=== PATIENT | female | born 1995 | race African-American/Black ===

== ENCOUNTER 2019-03-17 18:19 | Emergency (ER) | payer OTHER ==
[~2019-03-17] VITALS: Ht 160 cm; Wt 56.7 kg
[2019-03-17] MEDS ORDERED: ISOVUE-370 76% 100ML VIAL (Q9967) As Ordered ONE (20:34)
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
[2019-03-17 22:10] VITALS: BP 135/76
--- NOTE | 2019-03-18 10:51 | REP ---
Left tibia-fibula four views : There is no fracture or dislocation. Mineralization and joint spaces are normal. There are no calcifications or foreign bodies. Impression: Negative left tibia-fibula . Electronically Signed by Arcadio Kim MD 03/18/2019 08:22 A
--- NOTE | 2019-03-18 10:51 | REP ---
Right shoulder three views : There is no fracture or dislocation. Mineralization and joint spaces are normal. There are no calcifications or foreign bodies. Impression: Negative right shoulder . Electronically Signed by Arcadio Kim MD 03/18/2019 08:23 A
--- NOTE | 2019-03-18 10:51 | REP ---
Left hand four views : There is no fracture or dislocation. Mineralization and joint spaces are normal. There are no calcifications or foreign bodies. Impression: Negative left hand . Electronically Signed by Arcadio Kim MD 03/18/2019 08:21 A
== END 2019-03-17 22:11 | disposition home or self-care (01) ==
LOC: M ED 18:19
DX: T74.11XA Adult physical abuse, confirmed, initial encounter (principal); S10.91XA Abrasion of unspecified part of neck, initial encounter; R52 Pain, unspecified; Y04.8XXA Assault by other bodily force, initial encounter; Y92.098 Other place in other non-institutional residence as the place of occurrence of the external cause
CPT/HCPCS: 36415; 70450; 70491; 71260; 73030; 73130; 73590; 74177; 80047; 84702; 99284; Q9967

== ENCOUNTER 2019-06-21 11:56 | Emergency (ER) | payer OTHER ==
[~2019-06-21] VITALS: Ht 154.9 cm; Wt 56.8 kg
[2019-06-21 13:40] LABS: BILIRUBIN, URINE MANUAL NEGATIVE (NEGATIVE); GLUCOSE, URINE (UA) MANUAL 1+(100 MG/DL) mg/dL (NEGATIVE); KETONE, URINE MANUAL NEGATIVE (NEGATIVE); UROBILINOGEN, URINE MANUAL NORMAL (NORMAL)
[2019-06-21] MEDS ORDERED: CLEO300C2 PO (13:52)
[2019-06-21] MEDS ORDERED: CLINDAMYCIN 150 MG CAP PO ONE (14:00)
[2019-06-21 14:02] VITALS: BP 124/66
[2019-06-21 14:12] LABS: CHLAMYDIA DNA AMPLIFICATION NEGATIVE (NEGATIVE); GC DNA AMPLIFICATION NEGATIVE (NEGATIVE)
== END 2019-06-21 14:04 | disposition home or self-care (01) ==
LOC: M ED 11:56
DX: N76.0 Acute vaginitis (principal)

== ENCOUNTER 2019-08-12 20:45 | Emergency (ER) | payer OTHER ==
[~2019-08-12] VITALS: Ht 154.9 cm; Wt 55.9 kg
[~2019-08-12 20:45] MED LIST: CLEO300C2 PO
[2019-08-12] MEDS ORDERED: IBUPROFEN 600 MG TAB PO ONE (22:15)
[2019-08-12] MEDS ORDERED: LIDOCAINE 5% (LIDODERM) PATCH TD ONE (22:15)
[2019-08-12] MEDS ORDERED: NAPR-837 PO (23:32)
[2019-08-12] MEDS ORDERED: LIDO5DIS41 TD (23:32)
[2019-08-12 23:37] VITALS: BP 133/82
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
[2019-08-13] MEDS ORDERED: **NOTE PATIENT COMMENT** MISC XX ONE (10:15)
== END 2019-08-12 23:39 | disposition home or self-care (01) ==
LOC: M ED 20:45
DX: Z04.1 Encounter for examination and observation following transport accident (principal); M54.9 Dorsalgia, unspecified; M79.652 Pain in left thigh